=== PATIENT | female | born 1995 | race Caucasian/White ===

== ENCOUNTER 2019-07-16 14:40 | Emergency (ER) | payer OTHER ==
[~2019-07-16] VITALS: Ht 160 cm; Wt 59.0 kg
[2019-07-16 14:43] VITALS: BP 110/70
--- NOTE | 2019-07-16 14:43 | NUR ---
Patient ambulated to bed 4 with family. RN evaluating patient at bedside.
--- NOTE | 2019-07-16 14:50 | NUR ---
24/F BIB GM C/O VAGINAL BLEEDING X 10 DAYS, INTERMITENT LOWER ABDOMINAL CRAMPING PAIN 02/26. HX: SEVERE ANEMIA. GOT BLOOD TRNSFUSION AT [facility] 03/07/19. 7 C/O R NECK PAIN X YESTERDAY. PATIENT POSITIONED FOR COMFORT; HOB ELEVATED; BEDRAILS UP X1; BED DOWN. ER MD MADE AWARE OF PT STATUS.
--- NOTE | 2019-07-16 15:02 | NUR ---
LAB AT BEDSIDE.
[2019-07-16 15:19] LABS: BASOPHILS % (AUTO) 0.4 % (0.0-2.0); EOSINOPHILS # (AUTO) 0.1 K/uL (0-0.4); EOSINOPHILS % (AUTO) 0.7 % (0.0-4.0); HEMATOCRIT 29.9 % (36-48); HEMOGLOBIN 9.7 g/dL (12.0-16.0); LYMPHOCYTES # (AUTO) 2.3 K/uL (2.5-16.5); LYMPHOCYTES % (AUTO) 31.1 % (20.5-51.1); MEAN CORPUSCULAR HEMOGLOBIN 28 pg (27-31); MEAN CORPUSCULAR HGB CONC 33 g/dL (33-37); MEAN CORPUSCULAR VOLUME 85.8 fL (80-94); MONOCYTES # (AUTO) 0.4 K/uL (0.8-1.0); NEUTROPHILS # (AUTO) 4.7 K/uL (1.8-7.7); NEUTROPHILS % (AUTO) 62.8 % (42.2-75.2); PLATELET COUNT (AUTO) 236 K/uL (140-450); RED BLOOD CELL COUNT(AUTO) 3.48 MIL/uL (4.20-5.40); RED CELL DISTRIBUTION WIDTH 24.4 % (11.6-13.7); WHITE BLOOD COUNT (AUTO) 7.4 K/uL (4.8-10.8)
--- NOTE | 2019-07-16 15:50 | NUR ---
ULTRASOUND AT BEDSIDE
[2019-07-16 17:07] VITALS: BP 119/62
--- NOTE | 2019-07-16 17:07 | NUR ---
Patient discharged with v/s stable. Written and verbal after care instructions given and explained. Patient verbalized understanding. Ambulatory with steady gait. All questions addressed prior to discharge. Advised to follow up with PMD.
[2019-07-16 17:31] LABS: APPEARANCE,URINE BLOODY (CLEAR); BILIRUBIN,URINE 3+ (NEGATIVE); BLOOD, URINE 3+ (NEGATIVE); COLOR,URINE RED (YELLOW); LEUKOCYTE ESTERASE ,URINE 3+ (NEGATIVE); NITRITE, URINE POSITIVE (NEGATIVE); UGLUCOSE TRACE (NEGATIVE)
[2019-07-16 17:56] LABS: RBC,URINE >100 /HPF (0-5); WBC,URINE 80-100 /HPF (0-5)
[2019-07-16 17:57] LABS: HYALINE CASTS, URINE 0-10 /LPF (None Seen)
== END 2019-07-16 17:07 | disposition home or self-care (01) ==
LOC: MED 14:40
DX: N92.1 Excessive and frequent menstruation with irregular cycle (principal)
CPT/HCPCS: 36415; 76856; 81001; 84702; 85025; 86900; 86901; 87086; 87186; 93976; 99284; Q0092

== ENCOUNTER 2020-04-04 14:19 | Observation (INO) | payer OTHER ==
[~2020-04-04] VITALS: Ht 162.6 cm; Wt 78.9 kg
[2020-04-04 14:26] VITALS: BP 140/86
--- NOTE | 2020-04-04 14:33 | NUR ---
AMB TO BED 03
--- NOTE | 2020-04-04 14:35 | NUR ---
PT C/O BRIGHT RED VAGINAL BLEEDING WITH INTERMITTENT SUPRAPUBIC CRAMPING X 1 MONTH. DENIES N/V/D. STATES EPISODES OF DIZZINESS AND BLURRED VISION. HX BLOOD TRANSFUSION FROM PREVIOUS EPISODES OF HEAVY VAGINAL BLEEDING IN FEB 2019. DENIES HISTORY. PT WAS ABLE TO WALK INDEPENDTLY TO ER BED. PT ALERT AND AWAKE. HX- ANEMIA RX- DENIES NKA
--- NOTE | 2020-04-04 14:40 | NUR ---
PT STATES UNABLE TO PROVIDE URINE AT THIS TIME
--- NOTE | 2020-04-04 14:45 | NUR ---
PT STATES SHE CAN GO THROUGH A PACK OF ABOUT 30 PADS IN 2 DAYS
[2020-04-04 15:39] LABS: BASOPHILS # (AUTO) 0.1 K/uL (0.00-0.22); BASOPHILS % (AUTO) 0.7 % (0.0-2.0); EOSINOPHILS % (AUTO) 0.3 % (0.0-4.0); LYMPHOCYTES # (AUTO) 1.5 K/uL (2.5-16.5); LYMPHOCYTES % (AUTO) 17.8 % (20.5-51.1); MEAN CORPUSCULAR HEMOGLOBIN 17 pg (27-31); MEAN CORPUSCULAR HGB CONC 29 g/dL (33-37); MEAN CORPUSCULAR VOLUME 59.7 fL (80-94); MONOCYTES # (AUTO) 0.4 K/uL (0.8-1.0); MONOCYTES % (AUTO) 4.2 % (1.7-9.3); NEUTROPHILS # (AUTO) 6.5 K/uL (1.8-7.7); PLATELET COUNT (AUTO) 289 K/uL (140-450); RED BLOOD CELL COUNT(AUTO) 2.56 MIL/uL (4.20-5.40); WHITE BLOOD COUNT (AUTO) 8.4 K/uL (4.8-10.8)
[2020-04-04 15:47] LABS: HEMATOCRIT 15.3 % (36-48); HEMOGLOBIN 4.4 g/dL (12.0-16.0)
--- NOTE | 2020-04-04 15:47 | NUR ---
H/H 4.4, 10.3
[2020-04-04 15:55] LABS: PROTHROMBIN TIME 9.9 secs (10.8-13.4)
[2020-04-04 15:56] LABS: ALBUMIN 3.5 g/dL (3.4-5.0); ANION GAP 13.5 (8-16); CARBON DIOXIDE 25.1 mmol/L (21-32); CREATININE 0.6 mg/dL (0.6-1.3); POTASSIUM 3.6 mmol/L (3.5-5.1); TOTAL BILIRUBIN 0.2 mg/dL (0.0-1.0)
--- NOTE | 2020-04-04 16:02 | NUR ---
R AC 20G IV INSERTED
[2020-04-04] MEDS ORDERED: HYDROcodone/APAP 5/325 MG 1 TAB TAB PO PRN (16:40)
[2020-04-04] MEDS ORDERED: ONDANSETRON 4 MG/2 ML VIAL IVP PRN (16:40)
--- NOTE | 2020-04-04 17:04 | NUR ---
PAGED DR GUZMAN FOR BLOOD CONSENT SINCE ER DR KHALIL HAS LEFT DEPARTMENT AND NEW ER IS ON SHIFT
--- NOTE | 2020-04-04 17:13 | NUR ---
DR GUZMAN GAVE VERBAL CONSENT VIA TELEPHONE FOR BLOOD TRANSFUSION DESPITE DR KHALIL ORDERING. DR GUZMAN STATES TO GO AHEAD AND CONTINUE WITH THE ER ORDER FOR BLOOD TRANSFUSION.
--- NOTE | 2020-04-04 17:16 | NUR ---
RECIEVED CALL FROM LAB, BLOOD IS READY. INFORMED KARAN RN TO TELL RN RECIEIVING PT IN TELE
--- NOTE | 2020-04-04 17:30 | NUR ---
Patient will be admitted to care of [facility] [facility]. Admited to TELE. Will go to [facility]. Belongings list completed. Report to KATH BALL.
[2020-04-04 17:45] VITALS: BP 128/71
--- NOTE | 2020-04-04 17:45 | NUR ---
RECEIVED REPORT FROM MSWS. C/O: VAGINAL BLEEDING [id number]. PT GOES THROUGH 1 PAD EVERY 3 HOURS. DX: SYMPTOMATIC ANEMIA. H&H: 4.4/10.3. NO PMHX. NKA. SKIN IS INTACT. PT RUNS ST. IV/IVF: RAC 20G SL. VS STABLE.
--- NOTE | 2020-04-04 17:50 | NUR ---
CONSENT HAS BEEN COLLECTED FOR BLOOD TRANSFUSION
--- NOTE | 2020-04-04 17:58 | NUR ---
BLOOD FUSION INITIATED. VS ARE STABLE. NO SIGNS OF A TRANSFUSION REACTION.
--- NOTE | 2020-04-04 19:15 | NUR ---
TRANSFER OF CARE TO PM RNMAE. PT IS RESTING IN BED. NO SIGNS OF DISTRESS.
--- NOTE | 2020-04-04 19:15 | NUR ---
RECEIVED PT AAOX4 , NID - O2 SAT WNL - ON TELE MONITOR - ST - DENIES ANY PAIN . IV SITE INTACT AND PATENT . W/ ON GOING FIST BAG OF BT - NO BT REACTION NOTED AT THIS TIME . PT. HAD HX OF VAG. BLEEDING - BUT SHE DENIES IT AT THIS TIME - WILL PROVIDE PERINEAL PADS - WILL CONT. VAG . BLEEDING ASSESSMENT . PLAN OF CARE DISCUSSED AND VERBALIZE UNDERSTANDING . PT HAS STEADY GAIT - WALKABLE . SAFETY MEASURES IN PLACE - CALL LIGHT WITHIN REACH . WILL CONT. TO MONITOR .
[2020-04-04 20:00] VITALS: BP 110/60
--- NOTE | 2020-04-04 21:00 | NUR ---
FIRST BAG BT CONSUMED - FLUSH W/ NSS - NO BT REACTION NOTED AT THIS TIME . WILL CONT. TO MONITOR .
--- NOTE | 2020-04-04 21:45 | NUR ---
BP 111/60, O2 SAT 100 5 , RR18 , CR 107 PER TELE MONITOR , T 98.8 - 2ND U OF PRBC TO BE STARTED .
--- NOTE | 2020-04-04 22:00 | NUR ---
MADE ROUNDS , NO S/SX OF ACUTE DISTRESS NOTED . NO POST BT REACTION NOTED AT THIS TIME . Addendum: 04/05/20 at 0159 by Erna Escamilla RN AT 22OO - 2ND U OF PRBC VERIFIED BY ME , AND QUINN COLBERT - O+ , UNIT NO.[id number], BLD. BANK NO.[id number] . START BT - WILL MONITOR V/S PER PROTOCOL .
--- NOTE | 2020-04-04 22:15 | NUR ---
MADE ROUNDS , NO BT REACTION NOTED AT THIS TIME . CALL LIGHT WITH REACH
--- NOTE | 2020-04-04 22:30 | NUR ---
MADE ROUNDS , NO BT REACTION NOTED AT THIS TIME .
[2020-04-05] VITALS: BP 111/60
--- NOTE | 2020-04-05 | NUR ---
MADE ROUNDS , NO BT REACTION NOTED AT THIS TIME . NO COMPLAIN MADE .
--- NOTE | 2020-04-05 01:00 | NUR ---
MADE ROUNDS , NO BT . REACTION NOTED AT THIS TIME . O2 SAT 100 %
--- NOTE | 2020-04-05 02:00 | NUR ---
2ND U OF PRBC CONSUMED - FLUSH W/ NSS - NO BT REACDTION NOTED AT THIS TIME .
--- NOTE | 2020-04-05 03:10 | NUR ---
3RD U OF PRBC - START - WOF BT REACTION - WILL CONT. TO MONITOR
[2020-04-05 04:00] VITALS: BP 117/60
--- NOTE | 2020-04-05 04:00 | NUR ---
MADE ROUNDS , NO S/SX OF ACUTE DISTRESS NOTED , NO BT REACTION NOTED .
--- NOTE | 2020-04-05 06:00 | NUR ---
MADE ROUNDS , NO S/SX OF ACUTE DISTRESS NOTED AT THIS TOME . NO BRT REACTION .
--- NOTE | 2020-04-05 07:13 | NUR ---
ENDORSED TO AM SHIFT - PT -STABLE .
--- NOTE | 2020-04-05 07:13 | NUR ---
RECEIVED REPORT FROM PM RNMAE. CONTINUE CONTINUITY OF CARE. C/O: VAGINAL BLEEDING [id number]. PT GOES THROUGH 1 PAD EVERY 3 HOURS. DX: SYMPTOMATIC ANEMIA. H&H: 4.4/10.3. NO PMHX. NKA. SKIN IS INTACT. PT RUNS ST. IV/IVF: RAC 20G SL. VS STABLE. PLAN: REVIEW MORNING LABS, OBSERVATION.
--- NOTE | 2020-04-05 07:15 | NUR ---
TRANSFER OF CARE TO RN. DR. GALVEZ WITH PT FOR A CONSULT. PT STATES THAT BLEEDING HAS DECREASED. DR. GALVEZ FEELS THAT PT IS WELL ENOUGH TO BE DC TOMORROW. VS STABLE. NO SIGNS OF DISTRESS. Addendum: 04/05/20 at 1929 by Itzel Gray RN RN THE DOCUMENTATION TIME OF THIS NOTE IS INCORRECT, THE CORRECT TIME IS 1914.
[2020-04-05 08:00] VITALS: BP 108/68
--- NOTE | 2020-04-05 09:03 | NUR ---
PATIENT HAS BEEN SCREENED AND CATEGORIZED LOW NUTRITION RISK. PATIENT WILL BE SEEN WITHIN 7 DAYS OF ADMISSION. 04/11/[address]
--- NOTE | 2020-04-05 09:30 | NUR ---
PT WAS COMPLAINING OF NAUSEA. ZOFRAN GIVEN VIA IV PUSH.
[2020-04-05 10:10] LABS: BASOPHILS # (AUTO) 0.1 K/uL (0.00-0.22); BASOPHILS % (AUTO) 0.6 % (0.0-2.0); EOSINOPHILS % (AUTO) 0.4 % (0.0-4.0); HEMATOCRIT 26.3 % (36-48); HEMOGLOBIN 8.2 g/dL (12.0-16.0); LYMPHOCYTES # (AUTO) 1.6 K/uL (2.5-16.5); LYMPHOCYTES % (AUTO) 16.7 % (20.5-51.1); MEAN CORPUSCULAR HEMOGLOBIN 23 pg (27-31); MEAN CORPUSCULAR HGB CONC 31 g/dL (33-37); MEAN CORPUSCULAR VOLUME 72.9 fL (80-94); MONOCYTES # (AUTO) 0.6 K/uL (0.8-1.0); NEUTROPHILS # (AUTO) 7.2 K/uL (1.8-7.7); NEUTROPHILS % (AUTO) 76.3 % (42.2-75.2); PLATELET COUNT (AUTO) 268 K/uL (140-450); RED BLOOD CELL COUNT(AUTO) 3.61 MIL/uL (4.20-5.40); RED CELL DISTRIBUTION WIDTH 32.5 % (11.6-13.7); WHITE BLOOD COUNT (AUTO) 9.5 K/uL (4.8-10.8)
[2020-04-05 10:29] LABS: CARBON DIOXIDE 24.9 mmol/L (21-32); CREATININE 0.6 mg/dL (0.6-1.3); POTASSIUM 3.9 mmol/L (3.5-5.1)
--- NOTE | 2020-04-05 10:42 | NUR ---
CHECKED PT UPDATED BNP, H&H HAS GONE UP: .09/14.3. DR. GUZMAN NOTIFIED FOR FURTHER ORDERS.
[2020-04-05 12:00] VITALS: BP 114/69
--- NOTE | 2020-04-05 12:30 | NUR ---
ASSISTED PT TO THE REST ROOM. PT COMPLETELY SATURATED 1 PAD WITH VAGINAL BLOODY DRAINAGE. PT CONTINUED TO PASS VAGINAL CLOTS INTO THE TOILET.
--- NOTE | 2020-04-05 15:21 | NUR ---
PT RESTING IN BED. RESPIRATIONS ARE EVEN AND UNLABORED. NO SIGNS OF DISTRESS. SPOKE WITH DR. GUZMAN, HE PLACED AN ORDER FOR AN OBGYN CONSULT REGARDING PTS VAGINAL BLEEDING.
--- NOTE | 2020-04-05 15:28 | NUR ---
DISCHARGE PLANNING: THIS IS A 24 Y/O FEMALE PATIENT FROM HOME, WHO CAME IN DUE TO DIZZINESS. PAST MEDICAL HISTORY INCLUDE UTERINE FIBROIDS. INITIAL DIAGNOSIS OF SYMPTOMATIC ANEMIA. H/H 4.4/15.3 ON ADMISSION -3 U PRBC TRANSFUSED ORDERED CURRENT H/H 8.2/26.3. DC PLAN BACK TO HOME ONCE STABLE. PER DR. GUZMAN WILL KEEP PATIENT ON OBS FOR NOW AND WILL EVALUATE TOMORROW. Addendum: 04/06/20 at 1346 by Kiesha Craft CM LATEST H/H 8.2/26.3. FOR POSSIBLE DC HOME TODAY.
[2020-04-05 16:00] VITALS: BP 117/75
[2020-04-05] MEDS: medroxyPROGESTERone 10 MG TAB PO SCH (17:57)
--- NOTE | 2020-04-05 18:00 | NUR ---
INITIATED FIRST DOSE OF PROVERA.
--- NOTE | 2020-04-05 19:15 | NUR ---
TRANSFER OF CARE TO PM RN. DR. GALVEZ WITH PT FOR A CONSULT. PT STATES THAT BLEEDING HAS DECREASED. DR. GALVEZ FEELS THAT PT IS WELL ENOUGH TO BE DC TOMORROW. VS STABLE. NO SIGNS OF DISTRESS.
--- NOTE | 2020-04-05 19:16 | NUR ---
REPORT RECEIVED FROM AM NURSE AT BEDSIDE. PT IN STABLE CONDITION. AAOX4. BOARD UPDATED. NO COMPLAINTS OF PAIN. NO SOB. AFEBRILE. PT IS AMBULATORY. PT ON REGULAR DIET. PT HAS BATHROOM PRIVILEGES. IV SITE R AC 20G RUNNING NS@5ML/HR TKO PATENT AND INTACT. SKIN WARM, DRY, AND INTACT WITH NO OPEN WOUNDS. BED LOCKED IN LOW POSITION. CALL TY WITHIN REACH. SAFETY PRECAUTION IN PLACE. ALL NEEDS MET AT THIS TIME.
[2020-04-05 20:00] VITALS: BP 123/70
--- NOTE | 2020-04-05 20:30 | NUR ---
PT SAYS VAGINAL BLEEDING HAS STOPPED AND SHE FEELS BETTER. WANTS TO LEAVE HOSPITAL. PT IS NOT DISCHARGED BUT WANTS TO LEAVE. I TOLD HER SHE WILL BE LEAVING AMA AND NEEDS TO SIGN PAPERWORK. SHE AGREED BUT WANTS PAPERWORK. INFORMED PATIENT THAT SHE WILL NOT RECEIVE PAPERWORK DUE TO LEAVING AMA.
--- NOTE | 2020-04-05 22:00 | NUR ---
PT SAYS SHE WILL STAY AND WAIT TO SPEAK WITH THE DOCTOR TOMORROW.
[2020-04-06] VITALS: BP 123/70
--- NOTE | 2020-04-06 00:30 | NUR ---
PT SLEEPING COMFORTABLY BUT AROUSABLE. NO S/S OF DISTRESS NOTED. WILL CONTINUE TO MONITOR.
--- NOTE | 2020-04-06 02:10 | NUR ---
PT SLEEPING COMFORTABLY BUT AROUSABLE. NO S/S OF DISTRESS NOTED. NO COMPLAINTS OF PAIN. NO SOB. AFEBRILE. WILL CONTINUE TO MONITOR.
[2020-04-06 04:00] VITALS: BP 121/68
--- NOTE | 2020-04-06 05:20 | NUR ---
PT AWAKE AND ALERT WATCHING TV. BATHROOM PRIVILEGE. BILATERAL RISE AND FALL OF CHEST. WILL CONTINUE TO MONITOR.
--- NOTE | 2020-04-06 07:08 | NUR ---
RECEIVED REPORT FROM PM RNMELO. CONTINUING CONTINUITY OF CARE. C/O: VAGINAL BLEEDING [id number]. PT GOES THROUGH 1 PAD EVERY 3 HOURS. DX: SYMPTOMATIC ANEMIA. H&H: 4.4/10.3 ON ADMISSION. NO PMHX. NKA. SKIN IS INTACT. PT RUNS ST TO SR. IV/IVF: RAC 20G SL. VS STABLE. DECREASE IN BLEEDING OVER NIGHT. PLAN: DC TO HOME.
[2020-04-06] MEDS: medroxyPROGESTERone 10 MG TAB PO SCH (07:49)
[2020-04-06 08:00] VITALS: BP 114/57
--- NOTE | 2020-04-06 08:00 | NUR ---
PASSED MEDICATIONS TO PT. PT TOLERATED WELL. NO COMPLAINTS OF DIZZINESS, PAIN, OR NAUSEA. DC IV. NO IV FLUIDS OR ANTIBIOTICS ORDERED.
[2020-04-06 08:09] LABS: FOLIC ACID 5.7 ng/mL (>3.0)
--- NOTE | 2020-04-06 10:39 | NUR ---
PT IS RESTING IN BED ASLEEP. RESPIRATIONS ARE EVEN AND UNLABORED. NO SIGNS OF DISTRESS.
--- NOTE | 2020-04-06 12:04 | NUR ---
QUINN HILLIARD WILL BE ASSUMING CARE OF PT.
[2020-04-06 12:22] VITALS: BP 130/81
--- NOTE | 2020-04-06 12:43 | NUR ---
RECEIVED PT PLAYING WITH HER PHONE, ALERT, AWAKE, ORIENTED, NO CO PAIN CLAIMED I AM GOING HOME TODAY, NO BLEEDING NOTED.
--- NOTE | 2020-04-06 15:05 | NUR ---
TALKED TO PT FOR CBC TEST, PT REFUSED, MD AWARE.
--- NOTE | 2020-04-06 16:28 | NUR ---
ACCOMPANIED PT TO THE FRONT LOBBY PATIENT ALERT, AWAKE ORIENTED, NO C/O PAIN, NO BLEEDING NOTED, AWARE NEED TO FOLLOW UP WITH PRIMARY MD IN 3-5 DAYS, DISCHARGE INSTRUCTION GIVEN.
== END 2020-04-06 16:20 | disposition home or self-care (01) ==
LOC: MED 14:19 → MTU 16:17
PROVIDERS: ADMIT Hospitalist; ATTEND Hospitalist
DX: D64.9 Anemia, unspecified (principal); R42 Dizziness and giddiness; N92.0 Excessive and frequent menstruation with regular cycle; D25.9 Leiomyoma of uterus, unspecified; N83.209 Unspecified ovarian cyst, unspecified side; I95.9 Hypotension, unspecified; R00.0 Tachycardia, unspecified; F17.200 Nicotine dependence, unspecified, uncomplicated
CPT/HCPCS: 36415; 36430; 80048; 80053; 82607; 82728; 82746; 83540; 84703; 85025; 85045; 85610; 86886; 86900; 86901; 86920; 96374; 99291; G0378; J2405; P9016

== ENCOUNTER 2020-04-13 23:36 | Emergency (ER) | payer OTHER ==
[~2020-04-13] VITALS: Ht 160 cm; Wt 74.8 kg
[2020-04-13 23:43] VITALS: BP 136/88
[2020-04-14 00:16] LABS: HEMATOCRIT 26.4 % (36-48); MEAN CORPUSCULAR HEMOGLOBIN 22 pg (27-31); MEAN CORPUSCULAR HGB CONC 31 g/dL (33-37); MEAN CORPUSCULAR VOLUME 72.6 fL (80-94); PLATELET COUNT (AUTO) 638 K/uL (140-450); RED BLOOD CELL COUNT(AUTO) 3.64 MIL/uL (4.20-5.40); WHITE BLOOD COUNT (AUTO) 13.6 K/uL (4.8-10.8)
[2020-04-14 00:31] LABS: ALBUMIN 3.1 g/dL (3.4-5.0); ANION GAP 14.8 (8-16); CARBON DIOXIDE 23.7 mmol/L (21-32); CREATININE 0.8 mg/dL (0.6-1.3); POTASSIUM 3.5 mmol/L (3.5-5.1); TOTAL BILIRUBIN 0.1 mg/dL (0.0-1.0)
[2020-04-14 00:48] LABS: EOSINOPHILS % (MANUAL) 1 % (0-4); LYMPHOCYTES % (MANUAL) 18 % (20-46); MONOCYTES % (MANUAL) 3 % (5-12)
[2020-04-14 02:02] LABS: APPEARANCE,URINE CLOUDY (CLEAR); BILIRUBIN,URINE NEGATIVE (NEGATIVE); BLOOD, URINE 3+ (NEGATIVE); COLOR,URINE BROWN (YELLOW); LEUKOCYTE ESTERASE ,URINE 1+ (NEGATIVE); NITRITE, URINE POSITIVE (NEGATIVE); UGLUCOSE NEGATIVE (NEGATIVE)
[2020-04-14 02:06] LABS: RBC,URINE TOO NUMEROUS TO COUN /HPF (0-5)
[2020-04-14 02:07] LABS: WBC,URINE 20-60 /HPF (0-5)
[2020-04-14] MEDS ORDERED: cefTRIAXone 1,000 MG VIAL ONE (02:29)
[2020-04-14] MEDS ORDERED: NACL 0.9% 1,000 ML IV ONE (02:45)
[2020-04-14 04:27] VITALS: BP 128/77
== END 2020-04-14 04:27 | disposition home or self-care (01) ==
LOC: MED 23:36
DX: N39.0 Urinary tract infection, site not specified (principal); N83.201 Unspecified ovarian cyst, right side; N83.202 Unspecified ovarian cyst, left side; R42 Dizziness and giddiness; D64.9 Anemia, unspecified
CPT/HCPCS: 36415; 74177; 76830; 80053; 81001; 84702; 85025; 86886; 86900; 86901; 87086; 96361; 96365; 99285; J0696; Q0092; Q9967

== ENCOUNTER 2020-12-12 05:08 | Emergency (ER) | payer MEDICAID, OTHER ==
[~2020-12-12] VITALS: Ht 160 cm; Wt 59.0 kg
[2020-12-12 05:13] VITALS: BP 127/86
[2020-12-12] MEDS ORDERED: NACL 0.9% 1,000 ML IV ONE (05:25)
[2020-12-12] MEDS ORDERED: KETOROLAC 30 MG/ML VIAL IVP ONE (05:40)
[2020-12-12] MEDS ORDERED: diazePAM 5 MG TAB PO ONE (05:40)
[2020-12-12 05:51] LABS: HEMATOCRIT 30.1 % (36-48); MEAN CORPUSCULAR HEMOGLOBIN 21 pg (27-31); WHITE BLOOD COUNT (AUTO) 7.9 K/uL (4.8-10.8)
[2020-12-12 05:58] LABS: BASOPHILS # (AUTO) 0.1 K/uL (0.00-0.22); BASOPHILS % (AUTO) 0.9 % (0.0-2.0); EOSINOPHILS # (AUTO) 0.1 K/uL (0-0.4); EOSINOPHILS % (AUTO) 1.5 % (0.0-4.0); HEMOGLOBIN 9.4 g/dL (12.0-16.0); LYMPHOCYTES # (AUTO) 2.6 K/uL (2.5-16.5); LYMPHOCYTES % (AUTO) 33.3 % (20.5-51.1); MEAN CORPUSCULAR HGB CONC 31 g/dL (33-37); MEAN CORPUSCULAR VOLUME 66.1 fL (80-94); MONOCYTES # (AUTO) 0.4 K/uL (0.8-1.0); MONOCYTES % (AUTO) 4.7 % (1.7-9.3); NEUTROPHILS # (AUTO) 4.7 K/uL (1.8-7.7); NEUTROPHILS % (AUTO) 59.6 % (42.2-75.2); PLATELET COUNT (AUTO) 393 K/uL (140-450); RED BLOOD CELL COUNT(AUTO) 4.55 MIL/uL (4.20-5.40); RED CELL DISTRIBUTION WIDTH 20.7 % (11.6-13.7)
[2020-12-12 06:01] LABS: PROTHROMBIN TIME 9.6 secs (10.8-13.4)
[2020-12-12 06:18] LABS: ANION GAP 12.6 (8-16); CARBON DIOXIDE 26.4 mmol/L (21-32)
[2020-12-12 06:19] LABS: CREATININE 0.7 mg/dL (0.6-1.3)
[2020-12-12] MEDS ORDERED: MORPHINE SULFATE 2 MG/ML SYR IVP ONE (06:50)
[2020-12-12] MEDS ORDERED: DIAZ5TAB7 PO (07:15)
[2020-12-12] MEDS ORDERED: NAPR-54 PO (07:15)
[2020-12-12 08:04] VITALS: BP 127/86
== END 2020-12-12 08:02 | disposition home or self-care (01) ==
LOC: MED 05:08
DX: S16.1XXA Strain of muscle, fascia and tendon at neck level, initial encounter (principal); D64.9 Anemia, unspecified; F17.210 Nicotine dependence, cigarettes, uncomplicated; Z79.899 Other long term (current) drug therapy; X58.XXXA Exposure to other specified factors, initial encounter; Y93.89 Activity, other specified; Y92.89 Other specified places as the place of occurrence of the external cause; Y99.8 Other external cause status
CPT/HCPCS: 36415; 80048; 85025; 85610; 85730; 86870; 86886; 86900; 86901; 96361; 96374; 96375; 99284; J1885; J2270; J7030

== ENCOUNTER 2021-02-04 15:31 | Emergency (ER) | payer MEDICAID ==
[~2021-02-04] VITALS: Ht 160 cm; Wt 73.5 kg
[~2021-02-04 15:31] MED LIST: DIAZ5TAB7 PO; NAPR-54 PO
[2021-02-04 15:47] VITALS: BP 138/79
--- NOTE | 2021-02-04 16:40 | NUR ---
25 Y/O F BIB SPOUSE FROM HOME, C/O DIZZY, "EVERYTHING GOES BLACK", CHILLS, SWEATS, FATIGUE X3 DAYS. PT STATES "MY HEMOGLOBIN IS LOW, I USUALLY GET A BLOOD TRANSFUSION". DENIES N/V/D OR CONSTIPATION. PT STATES "HER PERIOD OF HEAVY AND LOTS OF BLOOD CAME OUT" PMH: ANEMIA NKA MED: DENIES
--- NOTE | 2021-02-04 17:15 | NUR ---
LAB BEDSIDE WITH PT
[2021-02-04 17:32] LABS: BASOPHILS % (AUTO) 0.5 % (0.0-2.0); EOSINOPHILS # (AUTO) 0.1 K/uL (0-0.4); EOSINOPHILS % (AUTO) 1.1 % (0.0-4.0); HEMATOCRIT 29.5 % (36-48); LYMPHOCYTES # (AUTO) 2.6 K/uL (2.5-16.5); MEAN CORPUSCULAR HEMOGLOBIN 21 pg (27-31); MEAN CORPUSCULAR HGB CONC 31 g/dL (33-37); MEAN CORPUSCULAR VOLUME 68.5 fL (80-94); MONOCYTES # (AUTO) 0.4 K/uL (0.8-1.0); MONOCYTES % (AUTO) 5.4 % (1.7-9.3); NEUTROPHILS # (AUTO) 4.2 K/uL (1.8-7.7); PLATELET COUNT (AUTO) 339 K/uL (140-450); RED CELL DISTRIBUTION WIDTH 20.1 % (11.6-13.7); WHITE BLOOD COUNT (AUTO) 7.3 K/uL (4.8-10.8)
--- NOTE | 2021-02-04 17:38 | NUR ---
PT RESTING BEDSIDE WITH . PT VS STABLE. BED IN LOWEST POSITION WITH SIDERAILX1 UP. PT PROVIDED WATER.
[2021-02-04 17:49] LABS: ALBUMIN 3.8 g/dL (3.4-5.0); ANION GAP 7.9 (8-16); CARBON DIOXIDE 27.8 mmol/L (21-32); CREATININE 0.7 mg/dL (0.6-1.3); POTASSIUM 3.7 mmol/L (3.5-5.1); TOTAL BILIRUBIN 0.2 mg/dL (0.0-1.0)
[2021-02-04 18:48] VITALS: BP 122/82
== END 2021-02-04 18:49 | disposition home or self-care (01) ==
LOC: MED 15:31
DX: R53.1 Weakness (principal); N93.8 Other specified abnormal uterine and vaginal bleeding; R42 Dizziness and giddiness; R10.12 Left upper quadrant pain; D64.9 Anemia, unspecified; F17.210 Nicotine dependence, cigarettes, uncomplicated; Z71.6 Tobacco abuse counseling; Z79.899 Other long term (current) drug therapy
CPT/HCPCS: 36415; 80053; 84702; 85025; 86870; 86886; 86900; 86901; 99283

== ENCOUNTER 2021-08-23 23:52 | Emergency (ER) | payer MEDICAID, OTHER ==
[~2021-08-23] VITALS: Ht 160 cm; Wt 54.4 kg
[~2021-08-23 23:52] MED LIST changes: -DIAZ5TAB7 PO; +DIAZ5TAB8 PO
[2021-08-23 23:57] VITALS: BP 151/97
--- NOTE | 2021-08-23 23:57 | NUR ---
TO BED AMBULATORY
[2021-08-24] MEDS ORDERED: NACL 0.9% 1,000 ML IV ONE (00:30)
--- NOTE | 2021-08-24 00:39 | NUR ---
patient ambulated to the bathroom with a steady gait
[2021-08-24 00:44] LABS: BASOPHILS # (AUTO) 0.1 K/uL (0.00-0.22); BASOPHILS % (AUTO) 0.9 % (0.0-2.0); EOSINOPHILS # (AUTO) 0.1 K/uL (0-0.4); EOSINOPHILS % (AUTO) 1.4 % (0.0-4.0); HEMATOCRIT 27.5 % (36-48); HEMOGLOBIN 8.4 g/dL (12.0-16.0); LYMPHOCYTES # (AUTO) 2.5 K/uL (2.5-16.5); LYMPHOCYTES % (AUTO) 29.5 % (20.5-51.1); MEAN CORPUSCULAR HEMOGLOBIN 19 pg (27-31); MEAN CORPUSCULAR HGB CONC 31 g/dL (33-37); MEAN CORPUSCULAR VOLUME 61.3 fL (80-94); MONOCYTES # (AUTO) 0.4 K/uL (0.8-1.0); MONOCYTES % (AUTO) 5.3 % (1.7-9.3); NEUTROPHILS # (AUTO) 5.2 K/uL (1.8-7.7); NEUTROPHILS % (AUTO) 62.9 % (42.2-75.2); PLATELET COUNT (AUTO) 342 K/uL (140-450); RED BLOOD CELL COUNT(AUTO) 4.48 MIL/uL (4.20-5.40); RED CELL DISTRIBUTION WIDTH 22.2 % (11.6-13.7); WHITE BLOOD COUNT (AUTO) 8.3 K/uL (4.8-10.8)
--- NOTE | 2021-08-24 00:50 | NUR ---
swabbed handed to Syrmo.
--- NOTE | 2021-08-24 00:50 | NUR ---
xr at bedside
[2021-08-24 01:00] LABS: ALBUMIN 3.6 g/dL (3.4-5.0); ANION GAP 13.2 (8-16); CREATININE 0.5 mg/dL (0.6-1.3); POTASSIUM 4.2 mmol/L (3.5-5.1); TOTAL BILIRUBIN 0.1 mg/dL (0.0-1.0)
[2021-08-24] MEDS ORDERED: ONDANSETRON 4 MG/2 ML VIAL IVP ONE (01:35)
[2021-08-24] MEDS ORDERED: MECLIZINE 25 MG TAB PO ONE (02:00)
[2021-08-24] MEDS ORDERED: MECL-370 PO (02:00)
--- NOTE | 2021-08-24 02:29 | NUR ---
IV removed, catheter intact and site benign. Applied folded 4x4 gauze and tape to stop bleeding.
[2021-08-24 02:32] VITALS: BP 137/77
--- NOTE | 2021-08-24 02:32 | NUR ---
Patient discharged with v/s stable. Written and verbal after care instructions given and explained. Patient alert, oriented and verbalized understanding of instructions. Ambulatory with steady gait. All questions addressed prior to discharge. ID band removed. Patient advised to follow up with PMD. Rx of meclizine hcl given. Patient educated on indication of medication including possible reaction and side effects. Opportunity to ask questions provided and answered.
== END 2021-08-24 02:32 | disposition home or self-care (01) ==
LOC: MED 23:52
DX: R53.1 Weakness (principal); Z20.822 Contact with and (suspected) exposure to COVID-19; D64.9 Anemia, unspecified; Z88.8 Allergy status to other drugs, medicaments and biological substances; Z88.1 Allergy status to other antibiotic agents
CPT/HCPCS: 36415; 71045; 80053; 81002; 81025; 84484; 84703; 85025; 86900; 86901; 87426; 93005; 96361; 96374; 99285; J2405; J7030; J8597; Q0092

== ENCOUNTER 2022-10-17 15:48 | Emergency (ER) | payer MEDICAID, OTHER ==
[~2022-10-17] VITALS: Ht 160 cm; Wt 76.7 kg
[~2022-10-17 15:48] MED LIST changes: +MECL-370 PO
[2022-10-17 16:05] VITALS: BP 145/97
[2022-10-17 16:07] VITALS: BP 145/97
--- NOTE | 2022-10-17 16:25 | NUR ---
27 Y/O FEMALE BIB SPOUSE, C/O GENERAL WEAKNESS, DIZZY, STATES "VISION GOES BLACK SOMETIMES AROUND THE TIME OF MY PERIOD" THAT STARTED 1 WEEK AGO. DOES NOT RECALL IF SHE HAS LOC OR SYNCOPAL EPISODE. PMH: ANEMIA NKA MED: DENIES
--- NOTE | 2022-10-17 18:44 | NUR ---
The patient's care was reviewed and supervised by Alicia Nguyễn, RN, RN.
== END 2022-10-17 18:41 | disposition left against medical advice (07) ==
LOC: MED 15:48
DX: R53.1 Weakness (principal); D64.9 Anemia, unspecified; N93.8 Other specified abnormal uterine and vaginal bleeding; Z79.899 Other long term (current) drug therapy
CPT/HCPCS: 99281